=== PATIENT | female | born 1970 | race Caucasian/White ===

== ENCOUNTER 2019-10-05 10:33 | Emergency (ER) | payer BC, MEDICAID ==
[~2019-10-05] VITALS: Ht 170.2 cm; Wt 83.7 kg
[2019-10-05 10:46] VITALS: BP 128/47
--- NOTE | 2019-10-05 11:46 | NUR ---
FROM LOBBY TO ROOM AT THIS TIME
== END 2019-10-05 12:06 | disposition home or self-care (01) ==
LOC: ED 11:55
DX: H65.01 Acute serous otitis media, right ear (principal); F17.200 Nicotine dependence, unspecified, uncomplicated
CPT/HCPCS: 99282